=== PATIENT | female | born 1985 | race Caucasian/White ===

== ENCOUNTER 2021-10-04 22:07 | Emergency (ER) | payer OTHER ==
[~2021-10-04] VITALS: Ht 157.5 cm; Wt 65.9 kg
[2021-10-04 22:07] VITALS: BP 113/75
--- NOTE | 2021-10-04 22:55 | RAD ---
Exam: Chest one view INDICATION: Cough TECHNIQUE: Frontal view of the chest Comparisons: None FINDINGS: The cardiomediastinal silhouette and pulmonary vessels are within normal limits. The lung and pleural spaces are clear. IMPRESSION: No acute cardiopulmonary process. Electronically signed by: Gretchen Mendes MD (10/04/2021 10:53 PM) [facility]
[2021-10-04] MEDS ORDERED: DEXAMETHASONE 4 MG TABLET PO ONE (23:00)
[2021-10-04] MEDS ORDERED: PRED20TA PO (23:05)
[2021-10-04] MEDS ORDERED: ORPH-16 PO (23:05)
--- NOTE | 2021-10-04 23:05 | PHYS DOC ---
Past History Additional Past Medical Histor: bess Past Surgical History: General Adult EDM: Chief Complaint: COUGH HPI: HPI: Patient is a [age] year old [sex] who presents with [] Review of Systems: Review of Systems: Constitutional: Denies fever or chills Eyes: Denies redness or eye pain HENT: Denies nasal congestion or sore throat Respiratory: Denies cough or shortness of breath Cardiovascular: Denies chest pain or palpitations GI: Denies abdominal pain, nausea, or vomiting : Denies dysuria or hematuria Musculoskeletal: Denies back pain or joint pain Integument: Denies rash or skin lesions Neurologic: Denies headache, focal weakness or sensory changes Complete systems were reviewed and found to be within normal limits, except as documented in this note. Current Medications: Current Meds: Current Medications Medications (Trade) Dose Ordered Sig/Opal Start Time Stop Time Status Last Admin Dose Admin Dexamethasone (Decadron) 10 mg 1X ONCE 10/04/21 23:00 10/04/21 23:01 10/04/21 22:54 10 MG Allergies: Allergies: Allergies Coded Allergies Type Severity Reaction Last Updated Verified Penicillins Allergy Intermediate 10/04/21 Yes amoxicillin Allergy Intermediate 10/04/21 Yes cefaclor Allergy Intermediate 10/04/21 Yes vancomycin Allergy Intermediate 10/04/21 Yes Physical Exam: PE: Constitutional: Well developed, well nourished, no acute distress, non-toxic appearance HENT: Normocephalic, atraumatic Eyes: PERRL, EOMI, conjunctiva normal, no discharge Neck: Normal range of motion, no tenderness, supple Lungs & Thorax: No respiratory distress, equal chest rise and fall Abdomen: Soft, no tenderness Skin: Warm, dry, no erythema, no rash Back: No tenderness, no CVA tenderness Extremities: No tenderness, ROM intact, no edema Neurologic: Alert and oriented X 3, normal motor function, normal sensory function, no focal deficits noted Psychologic: Affect normal, judgment normal Current Patient Data: Vital Signs: Vital Signs Date Time Temp Pulse Resp B/P (MAP) Pulse Ox O2 Delivery O2 Flow Rate FiO2 10/04/21 22:07 98.4 90 18 113/75 (88) 97 Room Air EKG: EKG: [] Radiology/Procedures: Radiology/Procedures: PROCEDURE: CHEST AP ONLY Exam: Chest one view INDICATION: Cough TECHNIQUE: Frontal view of the chest Comparisons: None FINDINGS: The cardiomediastinal silhouette and pulmonary vessels are within normal limits. The lung and pleural spaces are clear. IMPRESSION: No acute cardiopulmonary process. Electronically signed by: Gretchen Mendes MD (10/04/2021 10:53 PM) [facility] Heart Score: C/O Chest Pain: N/A Course & Med Decision Making: Course & Med Decision Making Pertinent Labs and Imaging studies reviewed. (See chart for details) [] Dragon Disclaimer: Dragon Disclaimer: This electronic medical record was generated, in whole or in part, using a voice recognition dictation system. Departure Departure: Impression: Primary Impression: Bronchitis Additional Impression: Costochondritis, acute Disposition: HOME / SELF CARE / HOMELESS Condition: STABLE Referrals: IFEOMA TORO DO, MPH (PCP) Patient Instructions: Acute Bronchitis, [id number], Costochondritis, [id number] Additional Instructions: Please continue previously prescribed antibiotic and cough suppressant. Often these conditions are caused by a viral infection. Will you have previously have reportedly tested negative for COVID-19, it sounds like that was obtained with a RAPID test. No RAPID testing is 100%. You have elected to not obtain a PCR test today for COVID-19. Please follow with your doctor if symptoms persist or for further evaluation and/or testing. Scripts Albuterol Sulfate (PROAIR HFA INHALER) 8.5 Gm Hfa.aer.ad 2 PUFF IH PRN Q4-6HRS PRN for wheezing, #1 INHALER 0 Refills Prov: ASAD PHILLIPS DO 10/04/21 Orphenadrine Citrate (ORPHENADRINE CITRATE) 100 Mg Tablet.er 1 TAB PO BID PRN for MUSCLE PAIN, #14 TAB 0 Refills Prov: ASAD PHILLIPS DO 10/04/21 Prednisone (PREDNISONE) 20 Mg Tablet 2 TAB PO DAILY for Bronchitis, #8 TAB Start this prescription tomorrow, 10/05/21 Prov: ASAD PHILLIPS DO 10/04/21 PERC Rule for PE PERC Rule for PE Response (Comments) Value Age > 50: No 0 HR > 100: No 0 Sa02 on room air <95%: No 0 Unilateral leg swelling: No 0 Hemoptysis: No 0 Recent surgery or trauma: No 0 Prior PE or DVT: No 0 Hormone use: No 0 Total 0 PHILLIPSASAD DO Oct 04, 2021 23:05
[2021-10-04] MEDS ORDERED: ALBU2.5V8 IH (23:15)
== END 2021-10-04 23:15 | disposition home or self-care (01) ==
LOC: ER 22:07
DX: J40 Bronchitis, not specified as acute or chronic (principal); M94.0 Chondrocostal junction syndrome [Tietze]; Z88.0 Allergy status to penicillin; Z88.1 Allergy status to other antibiotic agents
CPT/HCPCS: 71045; 99283; J8540